=== PATIENT | female | born 1985 | race Caucasian/White ===

== ENCOUNTER 2022-05-07 11:42 | Outpatient (REF) | payer BC, SELFPAY ==
--- NOTE | ~2022-05-07 | US_ITS ---
EXAMINATION: US RETROPERITONEAL LIMITED (RENAL ONLY) CLINICAL INFORMATION: Calculus of kidney. COMPARISON: None TECHNIQUE: Real-time imaging of the kidneys. FINDINGS: RIGHT KIDNEY: 9.4 x 3.4 x 4.7 cm (SAG x AP x TRV). The kidney is normal in size, contour, and echogenicity. Renal cortical thickness is normal. No focal parenchymal lesions or hydronephrosis. There are 2 echogenic stones in lower pole measuring 0.3 x 0.2 x 0.2 cm and 0.3 x 0.3 x 0.3 cm. There is mild pelvic fullness but no caliectasis. LEFT KIDNEY: 9.7 x 5.5 x 3.7 cm (SAG x AP x TRV). The kidney is normal in size, contour, and echogenicity. Renal cortical thickness is normal. No calculi or focal parenchymal lesions. No hydronephrosis. Multiple hyperechoic masses were noted in the right lobe with the largest lesion measuring 4.5 x 4.6 x 4.6 cm and increased peripheral vascularity. Question hemangioma. Recommend correlation with CT or MRI. With contrast. US/US renal BI IMPRESSION: Nonobstructive echogenic stone lower pole right kidney. Unremarkable right kidney. Multiple hyperechoic masses right lobe likely hemangiomas. Correlate with CT or MRI liver with and without contrast.
== END 2022-05-07 11:43 | disposition home or self-care (01) ==
LOC: HO.US 11:42
PROVIDERS: PCP Internal Medicine; Visit Provider Urology
DX: N20.0 Calculus of kidney (principal)
CPT/HCPCS: 76775

== ENCOUNTER → 2022-06-18 09:47 | Outpatient (BNVA) | payer BC, SELFPAY | PROVIDERS: PCP Internal Medicine; Visit Provider Urology | DX: Z13.89 Encounter for screening for other disorder (principal) ==

== ENCOUNTER 2022-12-05 08:24 | Outpatient (REF) | payer BC, SELFPAY ==
--- NOTE | ~2022-12-05 | US_ITS ---
EXAMINATION: US RETROPERITONEAL LIMITED (RENAL ONLY) CLINICAL INFORMATION: Calculus of kidney. COMPARISON: Bilateral renal ultrasound dated 05/07/2022. TECHNIQUE: Real-time imaging of the kidneys. FINDINGS: RIGHT KIDNEY: 9.8 x 4.9 x 4.8 cm (SAG x AP x TRV). The kidney is normal in size, contour, and echogenicity. Renal cortical thickness is normal. No focal parenchymal lesions or hydronephrosis. 6 mm nonobstructing lower pole renal stone and a 4 mm nonobstructing lower pole renal stone, previously 3 mm and 3 mm slightly increased in size. LEFT KIDNEY: 9.9 x 5.1 x 4.4 cm (SAG x AP x TRV). The kidney is normal in size, contour, and echogenicity. Renal cortical thickness is normal. No calculi or focal parenchymal lesions. No hydronephrosis. Previously seen hepatic masses were not imaged on today's exam. US/US renal BI IMPRESSION: A 6 mm nonobstructing right lower pole renal stone and a 4 mm nonobstructing right lower pole renal stone, 3 mm slightly increased in size. Previously seen hepatic masses were not imaged on today's exam, and further evaluation with MR abdomen with and without contrast remains recommended if not already obtained.
== END 2022-12-05 08:25 | disposition home or self-care (01) ==
LOC: HO.US 08:24
PROVIDERS: Visit Provider Urology
DX: N20.0 Calculus of kidney (principal)
CPT/HCPCS: 76775

== ENCOUNTER 2022-12-18 10:15 | Outpatient (AMB) | payer BC, SELFPAY ==
--- NOTE | 2022-12-18 10:42 | A.OFFVIS_ITS ---
Intake Intake Visit Reasons: 6m follow up/US(set) Intake Note: Patient is present for Follow Up US Urology Med:None Antibiotic Allergy: None Blood Thinner: None Pharmacy: [facility] Allergies morphine Allergy (Mild, Verified 12/18/22 10:43) Unknown HPI HPI Comments History of Present Illness Details Tiffany is a pleasant female. She is a patient of Dr. Gillespie. She is seen for the following urologic conditions - nephrolithiasis Ultrasound follow-up Small stone right side Has reduced frequency since starting magnesium and images Encouraged to drink more fluid Nephrolithiasis Recurrent stone former Family history of stones Passing multiple stones per year No prior evaluations Laboratory - Baseline - 10/17 - no evidence of hyperparathyroidism, magnesium was low normal 24 hour urine - 02/16 - main findings low volume 1.1 L , low magnesium, elevated salt - does use salt tablets for blood pressure, low oxalate, low calcium, low citrate - initial recommendation increase fluid intake to 64-70 oz daily, start magnesium supplement, addition of lemon juice 1 oz per day Imaging - 05/20 renal ultrasound 2 small stones r ight side 3mm - 11/17 renal ultrasound stable right sma ll stones Therapeutic plan - 6 month follow-up imaging [facility] Medical History History of kidney stones Review of Systems Const Denies chills and Denies fever(s) Card Reports no additional complaints and Denies syncope Resp Denies cough GI Denies abdominal pain and Denies heartburn Reports as per HPI and Denies change in libido Neuro Denies syncope Psych Denies change in libido Endo Denies change in libido Physical Exam Const General: cooperative, healthy appearing, comfortable and no acute distress Orientation/consciousness: patient oriented x3 HEENT Face and sinus: Yes normal facial exam Mouth: moist mucous membranes Neck Neck: Yes normal visual inspection, Yes full ROM and Yes trachea midline Chest Chest palpation & inspection: normal inspection of the chest Resp Effort & Inspection: normal respiratory effort, able to speak in complete sentences and no respiratory distress GI Inspection: Yes normal to inspection Back/Spine/Pelvis Cervical Spine: normal cervical lordosis Thoracic/Lumbar Spine: thoracic and lumbar spine normal to inspection Skin General skin exam: no rashes or lesions noted Neuro General: patient oriented x3, gait normal, tone normal and moves all extremities Extrem General: Yes normal to inspection and Yes capillary refill normal Assessment & Plan Assessment & Plan (1) Bilateral nephrolithiasis: Code(s): N20.0 - Calculus of kidney (2) 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 No major barriers to patient understanding were identified. An opportunity to ask questions regarding the treatment plan was provided. All questions were answered. The patient expressed understanding and agreement with the above treatment plan. The patient is aware they should contact our office by phone for worsening of their current condition or the appearance of new urologic symptoms. Compliance is encouraged with any medications and followup testing that is ordered. It is a privilege to participate in the urologic care of your patient. If you have any questions or concerns regarding treatment for the above conditions, or other urologic issues, please do not hesitate to contact me. The office telephone contact is [phone]. This note is constructed using voice recognition software. While every effort has been made to ensure accuracy chief operator synthesis errors may have been included. Yours sincerely, Dr Efren Montelongo MD, [facility] - Urology Providers of Expert, Compassionate Care for the Genitourinary System Coding Level of Care Code Est Pt Level 3 (75556) Diagnoses Bilateral nephrolithiasis N20.0 Hypocitraturia R82.991
== END 2022-12-18 11:08 | disposition home or self-care (01) ==
PROVIDERS: PCP Internal Medicine; Visit Provider Urology
DX: N20.0 Calculus of kidney (principal); R82.991 Hypocitraturia
CPT/HCPCS: 99213

== ENCOUNTER → 2022-12-18 10:15 | Outpatient (BNVA) | payer BC, SELFPAY | PROVIDERS: Visit Provider Urology ==